=== PATIENT | male | born 1970 | race Caucasian/White ===

== ENCOUNTER 2016-04-30 18:29 | Observation (INO) | payer MEDICARE ==
[~2016-04-30 18:29] MED LIST: CIPRO500 MG PO; FLOMAX0.4 MG PO; MACROBID 100 M100 MG PO; PERCOCET 10/3251 TAB PO; PROSCAR5 MG PO
[2016-05-02] MEDS ORDERED: FLOMAX0.4 MG PO (14:28)
[2016-05-02] MEDS ORDERED: CIPRO500 MG PO (14:28)
[2016-05-02] MEDS ORDERED: METOPROLOL TART25 MG PO (14:28)
[2016-05-02] MEDS ORDERED: PROSCAR5 MG PO (14:28)
== END 2016-05-02 15:10 | disposition home or self-care (01) ==
LOC: ER 18:29 → SDC 05-01 05:57 → ICU 05-01 09:50
PROVIDERS: ADMIT Internal Medicine
DX: S37.30XA Unspecified injury of urethra, initial encounter (principal); N13.30 Unspecified hydronephrosis; N99.821 Postprocedural hemorrhage of a genitourinary system organ or structure following other procedure; R31.9 Hematuria, unspecified; N32.3 Diverticulum of bladder; N13.9 Obstructive and reflux uropathy, unspecified; N32.89 Other specified disorders of bladder; N40.0 Benign prostatic hyperplasia without lower urinary tract symptoms; I47.2 Ventricular tachycardia; G89.29 Other chronic pain; Z86.19 Personal history of other infectious and parasitic diseases; Z79.899 Other long term (current) drug therapy
CPT/HCPCS: 36415; 51702; 80307; 93306; 96361; 96365; 96375; 96376; 97161-GP; 97165; C1758; G0378; J0153; J0696; J2704; P9021; Q9967